=== PATIENT | male | born 2000 | race American Indian/Alaskan Native ===

== ENCOUNTER 2021-07-24 16:31 | Emergency (ER) | payer MEDICAID ==
--- NOTE | 2021-07-24 17:11 | Emergency Department Report ---
ED General Adult HPI - General Chief complaint: Psych Stated complaint: MENTAL HEALTH PUI?: Yes Time Seen by Provider: 07/24/21 17:03 Source: patient, EMS ( EMS documentation not available at time of chart dictation ), RN notes reviewed, old records reviewed Mode of arrival: Ambulatory Limitations: Other (Patient is a poor historian) - History of Present Illness Initial comments: The patient is a 20-year-old gentleman. He reportedly has a history of developmental delay and cognitive delay. He is reportedly referred to the emergency room because of mood swings. The patient is not accompanied by friends or family at this time for collateral information or additional information. Called up listed phone #[phone]. Nobody answered the phone. Unable to leave voicemail patient denies physical pain. He complains of poor dentition. He is not homicidal suicidal. He is not experiencing hallucinations. He denies c omplaints at this time. Patient not accompanied by friends, family, or adults for collateral information or additional information -: unknown Severity scale (0 -10): 0 - Related Data Allergies Allergy/AdvReac Type Severity Reaction Status Date / Time No Known Allergies Allergy Verified 07/24/21 16:34 ED Review of Systems ROS: Stated complaint: MENTAL HEALTH Other details as noted in HPI Respiratory: denies: cough Cardiovascular: denies: chest pain Gastrointestinal: denies: abdominal pain Psychiatric: denies: homicidal thoughts, suicidal thoughts ED Past Medical Hx - Past Medical History Additional medical history: "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 Absent: nystagmus - ENT ENT exam: Present: normal orophraynx, mucous membranes moist, normal external ear exam, other (Patient has poor dentition) - Neck Neck exam: Present: normal inspection, full ROM. Absent: tenderness, meningismus - Respiratory Respiratory exam: Present: normal lung sounds bilaterally. Absent: respiratory distress, wheezes, rales, rhonchi, stridor, decreased breath sounds - Cardiovascular Cardiovascular Exam: Present: regular rate, normal rhythm, normal heart sounds. Absent: bradycardia, tachycardia, irregular rhythm, systolic murmur, diastolic murmur, rubs, gallop - GI/Abdominal GI/Abdominal exam: Present: soft. Absent: distended, tenderness, guarding, rebound, rigid, pulsatile mass - Rectal Rectal exam: Present: deferred - Extremities Exam Extremities exam: Present: normal inspection, full ROM, other (2+ pulses noted in the bilateral upper and lower extremities. There is no palpable cord. negative Homans sign. Muscular compartments are soft. The pelvis is stable.). Absent: pedal edema, calf tenderness - Back Exam Back exam: Present: normal inspection, full ROM. Absent: tenderness, CVA tenderness (R), CVA tenderness (L), paraspinal tenderness, vertebral tenderness - Neurological Exam Neurological exam: Present: alert, other (No facial droop. Tongue midline. Extraocular movements intact bilaterally. Facial sensation intact to light touch in V1, V2, V3 distribution bilaterally. 5 and a 5 strength in 4 extremities. Sensation intact to light touch in 4 extremities.). Absent: motor sensory deficit - Psychiatric Psychiatric exam: Absent: homicidal ideation, suicidal ideation - Skin Skin exam: Present: warm, dry, intact, normal color. Absent: rash ED Course Vital Signs 07/24/21 07/24/21 17:01 17:42 Temperature 98.7 F Pulse Rate 90 Respiratory 18 Rate Blood Pressure 115/71 [Left] O2 Sat by Pulse 97 97 Oximetry - Reevaluation(s) Reevaluation #1: 07/24/21 22:17 Differential diagnosis, include but not limited to: Encounter for medical screening examination, encounter for behavioral health screening examination, case management patient Assessment and plan: 20-year-old gentleman, who is afebrile, with reassuring vital signs, who is not homicidal suicidal, who is pleasant, calm and cooperative at this time, who is reportedly referred to the emergency room for unclear reasons, possibly for mood swings or behavioral health screening. Suspect that this is most likely behavioral. Laboratory studies and physical exam benign and unremarkable. Poor dentition can be followed up by an outpatient dentist. Case management and mental health consultation requested. Unable to obtain collateral information from listed phone number. At this point in time, patient does not appear to have an emergent medical condition which would preclude disposition to home, assisted, respite, or psychiatric facility. Appreciate input from case management/social studies department chair, and psychiatric team. The emergency room will follow along as the patient provides a urinalysis, and Covid swab to facilitate placement. Have also requested that home medications be reconciled if possible. ED Medical Decision Making - Lab Data Result diagrams: 07/24/21 18:21 07/24/21 18:21 Vital Signs 07/24/21 07/24/21 17:01 17:42 Temperature 98.7 F Pulse Rate 90 Respiratory 18 Rate Blood Pressure 115/71 [Left] O2 Sat by Pulse 97 97 Oximetry Lab Results 07/24/21 07/24/21 07/24/21 Range/Units 18:21 18:21 18:21 WBC 11.0 (4.5-11.0) K/mm3 RBC 4.72 (3.65-5.03) M/mm3 Hgb 12.9 (11.8-15.2) gm/dl Hct 40.6 (35.5-45.6) % MCV 86 (84-94) fl MCH 27 L (28-32) pg MCHC 32 (32-34) % RDW 14.3 (13.2-15.2) % Plt Count 252 (140-440) K/mm3 Lymph % (Auto) 10.4 L (13.4-35.0) % [place] % (Auto) 13.8 H (0.0-7.3) % Eos % (Auto) 2.0 (0.0-4.3) % Baso % (Auto) 0.5 (0.0-1.8) % Lymph # (Auto) 1.2 (1.2-5.4) K/mm3 [place] # (Auto) 1.5 H (0.0-0.8) K/mm3 Eos # (Auto) 0.2 (0.0-0.4) K/mm3 Baso # (Auto) 0.1 (0.0-0.1) K/mm3 Seg Neutrophils % 73.3 H (40.0-70.0) % Seg Neutrophils # 8.1 H (1.8-7.7) K/mm3 Sodium 139 (137-145) mmol/L Potassium 3.9 (3.6-5.0) mmol/L Chloride 101.8 (98-107) mmol/L Carbon Dioxide 25 (22-30) mmol/L Anion Gap 16 mmol/L BUN 9 (9-20) mg/dL Creatinine 0.8 (0.8-1.3) mg/dL Estimated GFR > 60 ml/min BUN/Creatinine Ratio 11 % Glucose 75 (75-100) mg/dL Calcium 9.2 (8.4-10.2) mg/dL TSH 1.270 (0.270-4.200) mlU/mL Salicylates (2.8-20.0) mg/dL Acetaminophen (10.0-30.0) ug/mL 07/24/21 07/24/21 Range/Units 18:21 18:21 WBC (4.5-11.0) K/mm3 RBC (3.65-5.03) M/mm3 Hgb (11.8-15.2) gm/dl Hct (35.5-45.6) % MCV (84-94) fl MCH (28-32) pg MCHC (32-34) % RDW (13.2-15.2) % Plt Count (140-440) K/mm3 Lymph % (Auto) (13.4-35.0) % [place] % (Auto) (0.0-7.3) % Eos % (Auto) (0.0-4.3) % Baso % (Auto) (0.0-1.8) % Lymph # (Auto) (1.2-5.4) K/mm3 [place] # (Auto) (0.0-0.8) K/mm3 Eos # (Auto) (0.0-0.4) K/mm3 Baso # (Auto) (0.0-0.1) K/mm3 Seg Neutrophils % (40.0-70.0) % Seg Neutrophils # (1.8-7.7) K/mm3 Sodium (137-145) mmol/L Potassium (3.6-5.0) mmol/L Chloride (98-107) mmol/L Carbon Dioxide (22-30) mmol/L Anion Gap mmol/L BUN (9-20) mg/dL Creatinine (0.8-1.3) mg/dL Estimated GFR ml/min BUN/Creatinine Ratio % Glucose (75-100) mg/dL Calcium (8.4-10.2) mg/dL TSH (0.270-4.200) mlU/mL Salicylates < 0.3 L (2.8-20.0) mg/dL Acetaminophen 5.0 L (10.0-30.0) ug/mL Critical care attestation.: If time is entered above; I have spent that time in minutes in the direct care of this critically ill patient, excluding procedure time. ED Disposition Clinical Impression: Encounter for medical screening examination, Encounter for behavioral health screening, Case management patient, Developmental delay, moderate Disposition: 30 STILL A PATIENT Is pt being admited?: No Does the pt Need Aspirin: No Condition: Good
[2021-07-24] MEDS ORDERED: HALOPERIDOL LACTATE 5 MG/1 ML INJ IM PRN (17:44)
[2021-07-24] MEDS ORDERED: LORazepam 2 MG/ML VIAL IM PRN (17:44)
[2021-07-24 19:06] LABS: BUN/Creatinine Ratio 11; Blood Urea Nitrogen 9 mg/dL (9-20); Calcium 9.2 mg/dL (8.4-10.2); Hemolysis Index 7
[2021-07-24 19:17] LABS: Basophils # (Auto) 0.1 K/mm3 (0.0-0.1); Basophils % (Auto) 0.5 % (0.0-1.8); Eosinophils # (Auto) 0.2 K/mm3 (0.0-0.4); Hematocrit 40.6 % (35.5-45.6); Hemoglobin 12.9 gm/dl (11.8-15.2); Lymphocytes # (Auto) 1.2 K/mm3 (1.2-5.4); Lymphocytes % (Auto) 10.4 % (13.4-35.0); Mean Corpuscular HGB Conc 32 % (32-34); Mean Corpuscular Volume 86 fl (84-94); Monocytes # (Auto) 1.5 K/mm3 (0.0-0.8); Monocytes % (Auto) 13.8 % (0.0-7.3); Platelet Count 252 K/mm3 (140-440); Red Blood Count 4.72 M/mm3 (3.65-5.03); Red Cell Distribution Width 14.3 % (13.2-15.2)
--- NOTE | 2021-07-25 08:00 | Consultation ---
History of Present Illness - Reason for Consult Consult date: 07/25/21 Reason for consult: mental health evaluation - History of Present Psychiatric Illness ED Note: The patient is a 20-year-old gentleman. He reportedly has a history of developmental delay and cognitive delay. He is reportedly referred to the emergency room because of mood swings. The patient is not accompanied by friends or family at this time for collateral information or additional information. Called up listed phone #[phone]. Nobody answered the phone. Unable to leave voicemail. The patient was seen this morning. The patient has history of developmental d elay and cognitive delay. In my encounter with the patient, is calm, alert and cooperative. The patient has difficulty with speech hence it was difficult to gather information. Attempted to reach listed phone #[phone] and I was told it was a wrong number. PAST PSYCHIATRIC HISTORY SOCIAL HISTORY ROS MENTAL STATUS EXAMINATION Assessment and Plan (1)Unspecified delay in development Treatment Plan Continue home medications as previously prescribed. Risks, benefits and alternatives of medications discussed with the patient, questions answered and consent obtained from patient. PSYCHOTHERAPY: Supportive psychotherapy provided MEDICAL: Per primary team DELIRIUM PRECAUTIONS: Please re-orient patient frequently, keep lights on during the day, and minimize benzodiazepines and opiates as these medications could worsen patient's confusion. DIRECTOR OF CREATIVE SERVICES: Per primary DISPOSITION: Do not recommend acute inpatient psychiatric hospitalization at this time. Will sign off. Thank you for the consult. Please contact with any questions and/or concerns. Case discussed with Dr. Inman who agrees with current disposition Medications and Allergies Medications and Allergies Allergies Allergy/AdvReac Type Severity Reaction Status Date / Time No Known Allergies Allergy Verified 07/24/21 16:34 Home Medications Medication Instructions Recorded Confirmed Last Taken Type Amoxicillin [Amoxicillin TAB] 875 mg PO BID #14 tablet 07/25/21 Unknown Rx Active Meds: Active Medications Haloperidol Lactate (Haloperidol Lactate 5 Mg/1 Ml Inj) 5 mg IM Q6HR PRN PRN Reason: Agitation Lorazepam (Lorazepam 2 Mg/Ml Vial) 2 mg IM Q4HR PRN PRN Reason: Agitation Mental Status Exam - Vital signs Last Vital Signs Temp 98.8 F 07/24/21 23:05 Pulse 96 H 07/24/21 23:05 Resp 18 07/24/21 23:05 BP 142/102 07/24/21 23:05 Pulse Ox 96 07/24/21 23:05 Results Result Diagrams: 07/24/21 18:21 07/24/21 18:21 Abnormal lab results 07/24/21 07/24/21 07/24/21 Range/Units 18:21 18:21 18:21 MCH 27 L (28-32) pg Lymph % (Auto) 10.4 L (13.4-35.0) % [place] % (Auto) 13.8 H (0.0-7.3) % [place] # (Auto) 1.5 H (0.0-0.8) K/mm3 Seg Neutrophils % 73.3 H (40.0-70.0) % Seg Neutrophils # 8.1 H (1.8-7.7) K/mm3 Salicylates < 0.3 L (2.8-20.0) mg/dL Acetaminophen 5.0 L (10.0-30.0) ug/mL All other labs normal.
--- NOTE | 2021-07-25 13:02 | Event Note ---
Date: 07/25/21 Patient is 20 years old with mental and developmental delay. Patient admitted to the ER for agitation and behavioral problem. Vital signs stable. Labs reviewed and is unremarkable. Patient has been evaluated by psychiatric team and recommended outpatient treatment. Patient is complaining of dental caries and there is a possible dental abscess. I started patient on amoxicillin and patient to follow-up with his primary care physician in the next 2 to 3 days and to return to the ER if he develop any new symptoms.
[2021-07-25 15:57] VITALS: BP 115/75
== END 2021-07-25 16:30 | disposition still patient (30) ==
LOC: EEVIPCON 16:31 → ED 16:31
DX: Z04.6 Encounter for general psychiatric examination, requested by authority (principal); Z13.42 Encounter for screening for global developmental delays (milestones); Z20.822 Contact with and (suspected) exposure to COVID-19; Z71.89 Other specified counseling; R94.6 Abnormal results of thyroid function studies
CPT/HCPCS: 36415; 80048; 84443; 85025; 96372; 99284; J2060; U0003; 80320; G0480

== ENCOUNTER 2022-01-03 09:46 | Emergency (ER) | payer MEDICAID ==
[2022-01-03] MEDS ORDERED: ZIPRASIDONE MESYLATE 20 MG VIAL IM ONE ×2 (13:24→21:12)
[2022-01-03] MEDS ORDERED: diphenhydrAMINE 50 MG/ML VIAL IV ONE (13:37)
--- NOTE | 2022-01-03 20:13 | Emergency Department Report ---
ED Psych HPI - General Chief Complaint: Psych Stated Complaint: COMBATIVE BEHAVIOR Time Seen by Provider: 01/03/22 13:17 Source: EMS Mode of arrival: Ambulatory - History of Present Illness MD Complaint: altered mental status, other (agitation) -: Gradual History of same: Yes Quality: constant Improves With: none Worsens With: none Associated Symptoms: denies: denies other symptoms, confusion - Related Data Previous Rx's Medication Instructions Recorded Last Taken Type Amoxicillin [Amoxicillin TAB] 875 mg PO BID #14 tablet 07/25/21 Unknown Rx Allergies Allergy/AdvReac Type Severity Reaction Status Date / Time No Known Allergies Allergy Verified 07/24/21 16:34 ED Review of Systems ROS: Stated complaint: COMBATIVE BEHAVIOR Other details as noted in HPI Constitutional: denies: chills, fever Eyes: denies: eye pain, eye discharge, vision change ENT: denies: ear pain, throat pain Respiratory: denies: cough, shortness of breath, wheezing Cardiovascular: denies: chest pain, palpitations Endocrine: no symptoms reported Gastrointestinal: denies: abdominal pain, nausea, diarrhea Genitourinary: denies: urgency, dysuria Musculoskeletal: denies: back pain, joint swelling, arthralgia Skin: denies: rash, lesions Neurological: denies: headache, weakness, paresthesias Psychiatric: denies: anxiety, depression Hematological/Lymphatic: denies: easy bleeding, easy bruising ED Past Medical Hx - Past Medical History Previous Medical History?: Yes Hx Hypertension: No Hx CVA: No Additional medical history: "born a preemie". "shunt in head", autism - Surgical History Additional Surgical History: multiple abd sx as a baby - Social History Smoking Status: Unknown if ever smoked - Medications Home Medications: Home Medications Medication Instructions Recorded Confirmed Last Taken Type Amoxicillin [Amoxicillin TAB] 875 mg PO BID #14 tablet 07/25/21 Unknown Rx ED Physical Exam - General Limitations: Altered Mental Status General appearance: alert, anxious, other (agitated) - Head Head exam: Present: atraumatic, normocephalic - Eye Eye exam: Present: normal appearance - ENT ENT exam: Present: mucous membranes moist - Neck Neck exam: Present: normal inspection - Respiratory Respiratory exam: Present: normal lung sounds bilaterally. Absent: respiratory distress - Cardiovascular Cardiovascular Exam: Present: regular rate, normal rhythm. Absent: systolic murmur, diastolic murmur, rubs, gallop - GI/Abdominal GI/Abdominal exam: Present: soft, normal bowel sounds - Rectal Rectal exam: Present: deferred - Extremities Exam Extremities exam: Present: normal inspection - Back Exam Back exam: Present: normal inspection - Neurological Exam Neurological exam: Present: alert, oriented X3 - Psychiatric Psychiatric exam: Present: normal affect, normal mood - Skin Skin exam: Present: warm, dry, intact, normal color. Absent: rash ED Course Vital Signs 01/03/22 01/03/22 01/03/22 10:22 16:47 21:11 Pulse Rate 94 H 142 H Respiratory 18 20 20 Rate Blood Pressure 110/64 140/120 [Left] O2 Sat by Pulse 100 98 98 Oximetry Critical care attestation.: If time is entered above; I have spent that time in minutes in the direct care of this critically ill patient, excluding procedure time. ED Disposition Clinical Impression: Agitation Disposition: 30 STILL A PATIENT Is pt being admited?: No Does the pt Need Aspirin: No Condition: Stable Referrals: KYLAH OLIVO MD [Primary Care Provider] - 3-5 Days
[2022-01-03] MEDS ORDERED: diphenhydrAMINE 50 MG/ML VIAL IM ONE (21:12)
[2022-01-04] MEDS ORDERED: ZIPRASIDONE MESYLATE 20 MG VIAL IM ONE ×2 (03:17→08:23)
[2022-01-04] MEDS ORDERED: WATER FOR INJ Sterile (PF) 10 ML ONE (03:19)
[2022-01-04] MEDS ORDERED: diphenhydrAMINE 50 MG/ML VIAL IV ONE (08:23)
--- NOTE | 2022-01-04 10:43 | Consultation ---
History of Present Illness - Reason for Consult Consult date: 01/04/22 Reason for consult: Mental health evaluation - History of Present Psychiatric Illness The patient was seen this morning. The patient has history of developmental delay and cognitive delay. The patient was seen this morning. He is agitated, shouting and hitting himself. PAST PSYCHIATRIC HISTORY SOCIAL HISTORY ROS MENTAL STATUS EXAMINATION Assessment and Plan (1)Unspecified delay in development Treatment Plan: Case management Continue home medications as previously prescribed. Risks, benefits and alternatives of medications discussed with the patient, questions answered and consent obtained from patient. PSYCHOTHERAPY: Supportive psychotherapy provided MEDICAL: Per primary team DELIRIUM PRECAUTIONS: Please re-orient patient frequently, keep lights on during the day, and minimize benzodiazepines and opiates as these medications could worsen patient's confusion. RAND CEMENTER: Per primary DISPOSITION: Do not recommend acute inpatient psychiatric hospitalization at this time. [facility] [employer] will provide patient with psychiatric out patient resources. Will sign off. Thank you for the consult. Please contact with any questions and/or concerns. Case discussed with Dr. Inman who agrees with current disposition Medications and Allergies Allergies Allergy/AdvReac Type Severity Reaction Status Date / Time No Known Allergies Allergy Verified 07/24/21 16:34 Home Medications Medication Instructions Recorded Confirmed Last Taken Type Amoxicillin [Amoxicillin TAB] 875 mg PO BID #14 tablet 07/25/21 Unknown Rx QUEtiapine [SEROquel] 200 mg PO BID 01/04/22 01/04/22 Unknown History VALPROIC ACID Liq [DepaKENE Liq] 250 mg PO QHS 01/04/22 01/04/22 Unknown History traZODone [Desyrel] 50 mg PO QHS 01/04/22 01/04/22 Unknown History Mental Status Exam - Vital signs Last Vital Signs Temp 97.6 F 01/04/22 09:09 Pulse 107 H 01/04/22 09:09 Resp 20 01/04/22 09:09 BP 149/93 01/04/22 09:09 Pulse Ox 100 01/04/22 09:09 Results All other labs normal.
[2022-01-04] MEDS ORDERED: ZIPRASIDONE MESYLATE 20 MG VIAL IM PRN (10:44)
[2022-01-04] MEDS ORDERED: MIDAZOLAM 2 MG/2 ML INJ IM PRN (16:25)
[2022-01-04] MEDS ORDERED: HALOPERIDOL LACTATE 5 MG/1 ML INJ IM PRN (16:25)
--- NOTE | 2022-01-04 16:25 | Event Note ---
Date: 01/04/22 Nursing team reports that patient remains agitated. Psychiatric documentation reviewed and appreciated. Initial laboratory studies ordered by provider yesterday have not been obtained. Currently awaiting laboratory studies. Currently awaiting case management intervention. As needed orders are also initiated Vital Signs 01/03/22 01/03/22 01/03/22 10:22 16:47 21:11 Temperature Pulse Rate 94 H 142 H Respiratory 18 20 20 Rate Blood Pressure 110/64 140/120 [Left] O2 Sat by Pulse 100 98 98 Oximetry 01/04/22 09:09 Temperature 97.6 F Pulse Rate 107 H Respiratory 20 Rate Blood Pressure 149/93 [Left] O2 Sat by Pulse 100 Oximetry
[2022-01-04] MEDS: traZODone 50 MG TAB PO SCH (21:43)
[2022-01-04] MEDS: VALPROIC ACID 250 MG/5 ML ORAL LIQD PO SCH (21:43)
[2022-01-04] MEDS: QUEtiapine 200 MG TAB PO SCH (21:43)
[2022-01-05] MEDS: QUEtiapine 200 MG TAB PO SCH ×2 (10:17→21:58)
--- NOTE | 2022-01-05 11:21 | Event Note ---
Date: 01/05/22 vss , no events overnight , ,medically cleared , awaiting case management
[2022-01-05 14:09] LABS: Color,Urine Yellow (Yellow)
[2022-01-05 14:15] LABS: Mucus,Urine 1+ /HPF
[2022-01-05 14:50] LABS: Amphetamine Screen,Urine Negative; Benzodiazepines Screen,Urine Negative; Cannabinoid Screen,Urine Negative; Cocaine Screen,Urine Negative; Methadone Screen,Urine Negative; Opiate Screen,Urine Negative
[2022-01-05 14:51] LABS: BUN/Creatinine Ratio 8; Blood Urea Nitrogen 8 mg/dL (9-20); Calcium 9.8 mg/dL (8.4-10.2); Hemolysis Index 8
[2022-01-05 15:09] LABS: Basophils # (Auto) 0.1 K/mm3 (0.0-0.1); Basophils % (Auto) 0.7 % (0.0-1.8); Eosinophils % (Auto) 0.3 % (0.0-4.3); Hematocrit 43.9 % (35.5-45.6); Hemoglobin 14.3 gm/dl (11.8-15.2); Lymphocytes # (Auto) 1.1 K/mm3 (1.2-5.4); Lymphocytes % (Auto) 12.6 % (13.4-35.0); Mean Corpuscular HGB Conc 33 % (32-34); Mean Corpuscular Volume 90 fl (84-94); Monocytes # (Auto) 1.1 K/mm3 (0.0-0.8); Monocytes % (Auto) 11.8 % (0.0-7.3); Platelet Count 243 K/mm3 (140-440); Red Blood Count 4.85 M/mm3 (3.65-5.03); Red Cell Distribution Width 16.9 % (13.2-15.2)
[2022-01-05] MEDS ORDERED: DEXTROSE 50% IN WATER (25GM) 50 ML VIAL IV PRN (15:38)
[2022-01-05] MEDS ORDERED: IBUPROFEN ORAL LIQD 100 MG/5 ML ORAL.LIQD PO PRN (16:42)
[2022-01-05] MEDS ORDERED: ACETAMINOPHEN 325 MG/10.15 ML ORAL LIQD UNIT DOSE PO PRN (16:42)
[2022-01-05] MEDS: VALPROIC ACID 250 MG/5 ML ORAL LIQD PO SCH (21:57)
[2022-01-05] MEDS: traZODone 50 MG TAB PO SCH (21:58)
[2022-01-06] MEDS: QUEtiapine 200 MG TAB PO SCH ×2 (10:36→22:05)
--- NOTE | 2022-01-06 11:36 | Event Note ---
Date: 01/06/22 awaiting case management
[2022-01-06] MEDS: VALPROIC ACID 250 MG/5 ML ORAL LIQD PO SCH (22:05)
[2022-01-06] MEDS: traZODone 50 MG TAB PO SCH (22:05)
--- NOTE | 2022-01-07 12:49 | Event Note ---
Date: 01/07/22 S: 21-year-old M presents for evaluation of suicidal ideation. Pt was seen/evaluated by the initial evaluating ER physician. Patient was subsequently cleared by psychiatry. However the patient is still waiting to be seen by case management. Objective: Vitals are stable. Middle-aged female, lying on stretcher, moving all extremities, no acute distress, no drooling no stridor, no respiratory distress, nontoxic-appearing, patient repeatedly asking "when I get a get out of here?" Assessment: 21yo M p/w SI. He was medically cleared . Pt seen/evaluated by inpatient psychiatry. Pt is not a safe discharge and therefore, is currently awaiting placement va the aide of case management. Plan: Disposition per case management.
[2022-01-08] MEDS: QUEtiapine 200 MG TAB PO SCH (10:09)
--- NOTE | 2022-01-08 15:00 | Emergency Department Report ---
Blank Doc - Documentation Documentation: 21-year-old male awaiting case management disposition. As per notes review it is likely that patient will be discharged back home once outpatient follow-up is arranged. Dispo pending. No events overnight
[2022-01-09] MEDS: VALPROIC ACID 250 MG/5 ML ORAL LIQD PO SCH (00:02)
[2022-01-09] MEDS: traZODone 50 MG TAB PO SCH (00:02)
[2022-01-09] MEDS: QUEtiapine 200 MG TAB PO SCH ×2 (00:02→10:04)
[2022-01-09 08:52] VITALS: BP 107/71
--- NOTE | 2022-01-09 13:59 | Emergency Department Report ---
Blank Doc - Documentation Documentation: Chart reviewed 21-year-old male cleared by mental health who is awaiting case management disposition. As per nurses note patient's mom plans to come and pick the patient up. Patient will be prepped for discharge
== END 2022-01-09 17:50 | disposition home or self-care (01) ==
LOC: ED 09:46 → EEVIPCON 09:46 → ED 01-09 17:50
DX: R45.1 Restlessness and agitation (principal); Z79.899 Other long term (current) drug therapy
CPT/HCPCS: 36415; 80048; 80164; 80307; 81001; 82962; 85025; 96372; 96374; 96376; 99284; J1200; J1630; J3486; 80320; 96375; G0480